=== PATIENT | female | born 2005 | race Caucasian/White ===

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

== ENCOUNTER 2023-07-31 16:55 | Inpatient (IN) | payer OTHER, SELFPAY ==
[2023-07-31] VITALS (45 sets, daily range): BP systolic 90–155; BP diastolic 60–107; PULSE 69–150; RESP 15–17; TEMP 36.6–36.9; O2SAT 97–100; BMI 23.4; BMI 24.5
--- NOTE | ~2023-07-31 | US_ITS ---
EXAMINATION: US OB limited DATE: 07/31/2023 18:46 INDICATION: hx ,vag bleeding, DAVID and Placenta check . TECHNIQUE: Real-time ultrasound of the pelvis was performed. COMPARISON: None. FINDINGS: There is a single living fetus in vertex presentation, longitudinal lie. The placenta is posterior a nd fundal, well clear of the cervix. heart rate is 129 bpm. The amniotic fluid index is 13.4 cm , which is normal (5th to 95th percentile is 8.3 to 24.5 cm). IMPRESSION: Single living fetus in vertex presentation. Posterior and fundal placenta. Normal DAVID. Reviewed, dictated and finalized at location K.
--- NOTE | 2023-07-31 16:55 | LDADM ---
This patient, Tomas Mccormick, was admitted to Labor/Delivery/Recovery 105 on 07/31/23 at 16:55. Plans for labor, pain management and were discussed with patient. Patient/family oriented to hospital policies and general routines including ID bracelet, bed and alarms, visiting hours, pain management, procedures, bathroom and other care routines, personal items, smoking policy, room service/diet and guest tray routines, infant security routines, and visiting hours. Patient/Family are encouraged to report perceived risks to care and to ask questions if they do not understand what they are told or what they should do. See OBIX for further documentation.
--- NOTE | 2023-07-31 17:08 | OBADM ---
This patient, Tomas Mccormick, admitted to the OB room OB Post 117 for observation. Patient/family oriented to hospital policies and general routines including ID bracelet, bed and alarms, visiting hours, pain management, procedures, bathroom and other care routines, personal items, smoking policy, room service/diet, and visiting hours. Patient/Family are encouraged to report perceived risks to care and to ask questions if they do not understand what they are told or what they should do.
--- NOTE | 2023-07-31 17:55 | PC.NURSE ---
Called for farm equipment technician to come in.
[2023-07-31] MEDS: AMPICILLIN 2 GM/NS 100 ML 2 GM/100 ML BAG IVPB (18:42)
[2023-07-31] MEDS: LACTATED RINGERS 1,000 ML 75 ML IV CONT (18:42)
[2023-07-31] MEDS: MAGNESIUM SULF 4 GM/WATER100ML 4 GM/100 ML BAG IVPB (18:47)
[2023-07-31] MEDS: BETAMETHASONE SOD PHOS/ACETATE 30 MG/5 ML VIAL 12 MG IM (18:47)
[2023-07-31 18:58] LABS: Appearance Urine Clear (Clear); Bacteria Urine 1+ /hpf; Bilirubin Urine Negative (Negative); Color Urine Dark Yellow (Yellow); Glucose Urine UA Negative (Negative); Ketones Urine Negative (Negative); Leukocyte Esterase Ur 2+ LEU/UL (NEGATIVE); Nitrate Urine Negative (Negative); Protein Urine Negative (Negative); RBC Urine 0-2 /hpf (0-2); Specific Grav Ur 1.033 (1.001-1.035); Squamous Epithelial Cell Urine Few /hpf (Few); WBC Urine 21-50 /hpf (0-3)
[2023-07-31 19:01] LABS: Add Urine Microscopic? YES
[2023-07-31] MEDS: MAGNESIUM SULF 20GM/WATER500ML 500 ML 50 MG IV CONT (19:17)
--- NOTE | 2023-07-31 19:21 | PM.IMHP ---
H&P: HPI History of Present Illness Date/Time: 07/31/23 19:21 Chief Complaint: Spotting and cramping Narrative: 18 y/0 at 33 weeks by stated edc of 09/18/23. She presented as a walk in to L and D with complaints of reddish spotting which started this morning at about 6am. She stated two days ago after intercourse she had vaginal bleeding, she describes as a lot, which did stop. She has had some cramping this evening. She receives care at [facility]. PNC significant for prior stat c/s at 24 weeks for labor and distress. The baby did not survive. She was planning on trial of labor. Denies any complications during this . On L and D she had ctx q 8-10 mild. Cervix dilated to 6cm/70/-2, posterior. ROM plus neg. Bedside ultrasound on L and D showed vertex presentation, normal amniotic fluid. OB labs/abruption labs drawn. No fevers or urinary symptoms. Review of Systems Review of Systems: All systems reviewed & are unremarkable except as noted in HPI and below Constitutional: Constitutional: Reports no additional constitutional complaints and Denies headache(s) Eyes: Eyes: Denies spots in vision ENT: Reports system reviewed and no additional complaints, except as documented and Denies headache(s) Cardiovascular: Cardiovascular: Denies chest pain and Denies dyspnea Respiratory: Respiratory: Denies dyspnea Gastrointestinal: Gastrointestinal: Reports no additional gastrointestinal complaints Genitourinary: Genitourinary: Reports amenorrhea Musculoskeletal: Musculoskeletal: Reports no additional musculoskeletal complaints Integumentary/Breasts: Skin/Breast: Denies breast mass and Denies rash Neurologic: Denies headache(s) Psychiatric: Psychiatric: Reports no additional psychiatric complaints [facility] Social History Social History Smoking status: Never smoker Substance use: never Spiritual care concerns: No Meds Home Medications and Allergies Allergies Allergy/AdvReac Type Severity Reaction Status Date / Time No Known Allergies Allergy Unknown Unverified 08/17/22 14:55 Vital Signs Vital Signs - 24 hr 07/31/23 17:25 07/31/23 18:52 07/31/23 18:57 Pulse Rate 78 86 Blood Pressure 121/73 142/78 H Pulse Oximetry 98 99 07/31/23 19:02 07/31/23 19:07 07/31/23 19:12 Pulse Rate Blood Pressure Pulse Oximetry 100 97 98 07/31/23 19:17 Pulse Rate Blood Pressure Pulse Oximetry 98 Exam Const: General: no acute distress Eyes: General: appearance normal, both eyes and all related structures Resp: Effort & Inspection: normal respiratory effort Cardio: Rate: regular rate GI: Other: Gravid no fundal tenderness no right upper quadrant pain Skin: General skin exam: no rashes or lesions noted Neuro: Cognition (Neuro): normal cognition Extrem: General: normal to inspection Psych: Mental Status: mental status grossly normal H&P: Results Labs Labs: Urine 07/31/23 Range/Units 18:12 Urine Color Dark yellow (Yellow) Urine Appearance Clear (Clear) Urine pH 6.0 (5.0-9.0) Ur Specific [place] 1.033 (1.001-1.035) Urine Protein Negative (Negative) mg/dL Urine Glucose (UA) Negative (Negative) mg/dL Assessment and Plan Assessment and plan (1) labor: Code(s): O60.00 - labor without delivery, unspecified trimester Status: Acute Assessment and Plan: Admit. Steroids. IV Antibiotics. Magnesium tocolysis to allow for steroid benefit and possible transport if she does not continue to dilate after several hours. She was informed of diagnosis of labor and risk of premature infant to include respiratory distress and need for transport of baby to Level 3 nursery facility if she delivers here due to not being stable for transport. She voices understanding. Records not available,will attempt to retrieve records, in t
[2023-07-31 19:27] LABS: Fetal Fibronectin Positive
[2023-07-31 19:35] LABS: Basophils Percent Auto 0.2 % (0.2-1.2); Eosinophils Absolute Auto 0.4 K/mm3 (0-0.3); Eosinophils Percent Auto 3.1 % (0-4.4); Hematocrit 34.5 % (37.0-47.0); Immature Granulocyte Absolute 0.05 K/mm3 (0.00-0.031); Immature Granulocyte Percent A 0.4 % (0-0.5); Lymphocytes Absolute Auto 1.83 K/mm3 (0.9-3.2); Lymphocytes Percent Auto 14.3 % (18.3-44.2); Mean Corpuscular HGB Conc 31.9 g/dl (32-36); Mean Corpuscular Hemoglobin 25.8 pg (26-34); Mean Platelet Volume 11.1 fl (7.4-10.4); Monocytes Absolute Auto 0.8 K/mm3 (0.1-0.6); Monocytes Percent Auto 6.1 % (2.6-8.5); Neutrophils Absolute Auto 9.7 K/mm3 (1.3-6.7); Neutrophils Percent Auto 75.9 % (45.5-73.1); Platelet Count Result 209 k/mm3 (150-375); Red Blood Count 4.26 M/mm3 (4.2-5.4); Red Cell Distribution Width 12.6 % (11.5-14.5); White Blood Count 12.8 K/mm3 (4.5-10.0)
[2023-07-31 19:43] LABS: Prothrombin Time 13.9 Seconds (11.1-14.7)
[2023-07-31 19:44] LABS: Partial Thromboplastin Time 26.7 SECONDS (22.3-36.8)
[2023-07-31 19:45] LABS: Fibrinogen 441 mg/dl (215-510)
[2023-07-31 19:47] LABS: Alanine Aminotransferase 12 U/L (6-35); Albumin Level 3.4 g/dL (3.5-5.1); Alkaline Phosphatase 129 U/L (38-126); Anion Gap 4 mmol/L (8-16); Aspartate Amino Transferase 22 U/L (14-36); Bilirubin,Total 0.5 mg/dL (0.2-1.3); Blood Urea Nitrogen 6 mg/dL (7-17); Calcium 8.4 mg/dL (8.4-10.2); Carbon Dioxide 25 mmol/L (22-30); Chloride 106 mmol/L (98-107); Estimated CRCL calculation 151 ml/min; Estimated Glomerular Filt Rate > 60; Glucose 87 mg/dL (65-110); Potassium 3.6 mmol/L (3.4-5.0); Sodium 135 mmol/L (137-145)
[2023-07-31 20:10] LABS: Amphetamine Screen Urine Negative (Negative); Barbiturate Screen Urine Negative (Negative); Benzodiazepines Screen Urine Negative (Negative); Cannabinoid Screen Urine Negative (Negative); Cocaine Screen Urine Negative (Negative); Methadone Screen Urine Negative (Negative); Opiate Screen Urine Negative (Negative); Phencyclidine Screen Urine Negative (Negative)
[2023-07-31 20:17] LABS: D Dimer 0.63 ug/mL (<0.48)
[2023-07-31 20:29] LABS: HIV 1/2 Ab P24 Ag Result Negative (Negative)
--- NOTE | 2023-07-31 20:32 | PM.OBPNVD ---
OB - PN: Subj Subjective Date/time seen: 07/31/23 20:32 Interval history: fht 135, cat 2, cervix /+1. Discussed with her that she has progressed and not stable for transport. Will deliver shortly. She has been informed of risk of and continues to agree with . Will stop Mg, alert Peds. She is aware baby will usually need to be transferred after delivery to level 3 nursery facility. OB - PN: Obj Data Labs 07/31/23 19:09 07/31/23 19:09 Labs: Laboratory Results - last 24 hr 07/31/23 07/31/23 07/31/23 18:12 18:15 19:09 WBC Cancelled RBC Hgb Hct MCV MCH MCHC RDW Plt Count MPV Immature Gran % (Auto) Neut % (Auto) Lymph % (Auto) [place] % (Auto) Eos % (Auto) Baso % (Auto) Lymph # (Auto) [place] # (Auto) Eos # (Auto) Baso # (Auto) Abs Immat Gran (auto) Absolute Neuts (auto) Absolute Nucleated RBC Nucleated RBC % % Immature Plt Fraction PT INR APTT Fibrinogen D-Dimer Sodium Potassium Chloride Carbon Dioxide Anion Gap BUN Creatinine Estim Creat Clear Calc Estimated GFR Glucose Calcium Total Bilirubin AST ALT Alkaline Phosphatase Total Protein Albumin Urine Color Dark yellow Urine Appearance Clear Urine pH 6.0 Ur Specific [place] 1.033 Urine Protein Negative Urine Glucose (UA) Negative Urine Ketones Negative Ur Blood (Man) Non-hemolyzed trace Urine Nitrate Negative Urine Bilirubin Negative Urine Urobilinogen 2.0 H Ur Leukocyte Esterase 2+ H Urine RBC 0-2 Urine WBC 21-50 Ur Squamous Epith Cells Few Urine Bacteria 1+ H Urine Casts 3-5 Urine Opiates Screen Negative Urine Methadone Screen Negative Ur Barbiturates Screen Negative Ur Phencyclidine Scrn Negative Ur Amphetamine Screen Negative U Benzodiazepines Scrn Negative Urine Cocaine Screen Negative U Cannabinoids Screen Negative HIV 1&2 Ab/P24 Ag 4thGn Fibronectin Positive 07/31/23 07/31/23 07/31/23 19:09 19:09 19:09 WBC 12.8 H RBC Cancelled 4.26 Hgb Cancelled 11.0 L Hct Cancelled MCV MCH MCHC RDW Plt Count MPV Immature Gran % (Auto) Neut % (Auto) Lymph % (Auto) [place] % (Auto) Eos % (Auto) Baso % (Auto) Lymph # (Auto) [place] # (Auto) Eos # (Auto) Baso # (Auto) Abs Immat Gran (auto) Absolute Neuts (auto) Absolute Nucleated RBC Nucleated RBC % % Immature Plt Fraction PT INR APTT Fibrinogen D-Dimer Sodium Potassium Chloride Carbon Dioxide Anion Gap BUN Creatinine Estim Creat Clear Calc Estimated GFR Glucose Calcium Total Bilirubin AST ALT Alkaline Phosphatase Total Protein Albumin Urine Color Urine Appearance Urine pH Ur Specific [place] Urine Protein Urine Glucose (UA) Urine Ketones Ur Blood (Man) Urine Nitrate Urine Bilirubin Urine Urobilinogen Ur Leukocyte Esterase Urine RBC Urine WBC Ur Squamous Epith Cells Urine Bacteria Urine Casts Urine Opiates Screen Urine Methadone Screen Ur Barbiturates Screen Ur Phencyclidine Scrn Ur Amphetamine Screen U Benzodiazepines Scrn Urine Cocaine Screen U Cannabinoids Screen HIV 1&2 Ab/P24 Ag 4thGn Fibronectin 07/31/23 07/31/23 07/31/23 19:09 19:09 19:09 WBC RBC Hgb Hct 34.5 L MCV Cancelled 81.0 MCH Cancelled 25.8 L MCHC Cancelled RDW Plt Count MPV Immature Gran % (Auto) Neut % (Auto) Lymph % (Auto) [place] % (Auto) Eos % (Auto) Baso % (Auto) Lymph # (Auto) [place] # (Auto) Eos # (Auto) Baso # (Auto) Abs Immat Gran (auto) Absolute Neuts (auto) Absolute Nucleated RBC Nucleated RBC % % Immature Plt Frac
[2023-07-31 20:39] LABS: Hepatitis B Surface Antigen Negative (Negative); Rubella IgG Antibody 6.8 IU/ML
[2023-07-31] MEDS: OXYTOCIN 30 UNITS/NS 500 ML 30 UNITS/500 ML BAG 999 UNITS IV CONT (22:30)
--- NOTE | 2023-07-31 22:40 | PM.OBPRVD ---
OB - Delivery Note Procedure Delivery date: 07/31/23 Procedure: spontaneous vaginal delivery Events: Other (pre term labor) Induction method: None Delivery augmentation: Rupture of Membranes Delivery monitor: External FHT Route of delivery: Episiotomy description: None Laceration Description: None Quantitative Blood Loss (ml): 150 Anesthesia type: None Disposition: Floor Complications: None Narrative: She was admitted for labor and antibiotics and steroids initiated. Magnesium was started to try to get effect from steroids. She did dilate to 9 within a 2 hours. Magnesium was discontinued. AROM performed clear fluid noted. She progressed to complete in 2.5 hours and delivered a male over intact perineum. Loose nuchal cord manually reduced at perineum and the rest of infant delivered. was handed to nursery staff in attendence, vigorously crying. Cord blood obtained and cord gases obtained. Placenta delivered spontaneously and intact. No lacerations. Baby Date of : 07/31/23 Time of : 22:30 Weeks of gestation at delivery: 33 Infant gender: Male presentation: vertex position: Left Occiput Anterior Placenta delivery description: Spontaneous Cord Vessel Description: 3 Vessels, Loose, Reduced (manually) and Clamped/Cut score one minute: 8 score five minutes: 9
[2023-07-31] MEDS: ACETAMINOPHEN 325 MG TABLET 650 MG PO (22:45)
[2023-07-31] MEDS: IBUPROFEN 600 MG TABLET PO (22:45)
[2023-07-31] MEDS: OXYTOCIN 30 UNITS/NS 500 ML 30 UNITS/500 ML BAG 125 UNITS IV CONT (23:03)
[2023-08-01] VITALS (8 sets, daily range): BP systolic 113–134; BP diastolic 54–78; PULSE 55–93; RESP 16–18; TEMP 36.5–37.2; O2SAT 98–100
[2023-08-01] MEDS: WITCH HAZEL 40 PADS 1 PAD TOPICAL (00:28)
[2023-08-01] MEDS: BENZOCAINE 20% AER SPR (*SP) 56 GM CAN 1 SPRAY TOPICAL (00:29)
--- NOTE | 2023-08-01 01:00 | OBPPTRN ---
Patient transferred to post room # 281 via ( wheelchair ). Support person present. Oriented to unit, room, information board, rooming in, admission packet and security measures. Patient verbalizes understanding.
[2023-08-01 05:09] LABS: Hematocrit 33.5 % (37.0-47.0); Hemoglobin 10.7 g/dL (12.0-15.0)
[2023-08-01] MEDS: MULTIVIT/MIN/PREN/FOL AC/IRON TABLET 1 TAB PO (08:08)
[2023-08-01] MEDS: DOCUSATE SODIUM 100 MG CAPSULE PO (08:08)
[2023-08-01] MEDS: RHO(D) IMMUNE GLOBULIN 300 MCG/2 ML SYRINGE IM (11:15)
--- NOTE | 2023-08-01 11:25 | PM.OBPNVD ---
OB - PN: Subj Subjective Date/time seen: 08/01/23 11:25 Interval history: fht 135, cat 2, cervix /+1. Discussed with her that she has progressed and not stable for transport. Will deliver shortly. She has been informed of risk of and continues to agree with . Will stop Mg, alert Peds. She is aware baby will usually need to be transferred after delivery to level 3 nursery facility. Patient comments: pain well controlled, tolerating diet and other (Decreasing lochia.) [place] baby status: doing well and nursing well OB - PN: Obj Data Labs 08/01/23 04:17 07/31/23 19:09 Labs: Laboratory Results - last 24 hr 07/31/23 07/31/23 07/31/23 18:12 18:15 19:09 WBC Cancelled RBC Hgb Hct MCV MCH MCHC RDW Plt Count MPV Immature Gran % (Auto) Neut % (Auto) Lymph % (Auto) [place] % (Auto) Eos % (Auto) Baso % (Auto) Lymph # (Auto) [place] # (Auto) Eos # (Auto) Baso # (Auto) Abs Immat Gran (auto) Absolute Neuts (auto) Absolute Nucleated RBC Nucleated RBC % % Immature Plt Fraction PT INR APTT Fibrinogen D-Dimer Sodium Potassium Chloride Carbon Dioxide Anion Gap BUN Creatinine Estim Creat Clear Calc Estimated GFR Glucose Calcium Total Bilirubin AST ALT Alkaline Phosphatase Total Protein Albumin Urine Color Dark yellow Urine Appearance Clear Urine pH 6.0 Ur Specific [place] 1.033 Urine Protein Negative Urine Glucose (UA) Negative Urine Ketones Negative Ur Blood (Man) Non-hemolyzed trace Urine Nitrate Negative Urine Bilirubin Negative Urine Urobilinogen 2.0 H Ur Leukocyte Esterase 2+ H Urine RBC 0-2 Urine WBC 21-50 Ur Squamous Epith Cells Few Urine Bacteria 1+ H Urine Casts 3-5 Urine Opiates Screen Negative Urine Methadone Screen Negative Ur Barbiturates Screen Negative Ur Phencyclidine Scrn Negative Ur Amphetamine Screen Negative U Benzodiazepines Scrn Negative Urine Cocaine Screen Negative U Cannabinoids Screen Negative Hep Bs Antigen HIV 1&2 Ab/P24 Ag 4thGn Rubella IgG Antibody Fibronectin Positive Blood Type Antibody Screen Antibody Identification Antigen Identification RAVI, IgG Interpret RAVI, Poly Interpret RAVI, Complement Interp Screen Baby's Blood Type Baby's RAVI KB Hemoglobin Doses of RhIg Required 0907/31/23 07/31/23 19:09 19:09 19:09 WBC 12.8 H RBC Cancelled 4.26 Hgb Cancelled 11.0 L Hct Cancelled MCV MCH MCHC RDW Plt Count MPV Immature Gran % (Auto) Neut % (Auto) Lymph % (Auto) [place] % (Auto) Eos % (Auto) Baso % (Auto) Lymph # (Auto) [place] # (Auto) Eos # (Auto) Baso # (Auto) Abs Immat Gran (auto) Absolute Neuts (auto) Absolute Nucleated RBC Nucleated RBC % % Immature Plt Fraction PT INR APTT Fibrinogen D-Dimer Sodium Potassium Chloride Carbon Dioxide Anion Gap BUN Creatinine Estim Creat Clear Calc Estimated GFR Glucose Calcium Total Bilirubin AST ALT Alkaline Phosphatase Total Protein Albumin Urine Color Urine Appearance Urine pH Ur Specific [place] Urine Protein Urine Glucose (UA) Urine Ketones Ur Blood (Man) Urine Nitrate Urine Bilirubin Urine Urobilinogen Ur Leukocyte Esterase Urine RBC Urine WBC Ur Squamous Epith Cells Urine Bacteria Urine Casts Urine Opiates Screen Urine Methadone Screen Ur Barbiturates Screen Ur Phencyclidine Scrn Ur Amphetamine Screen U Benzodiazepines Scrn Urine Cocaine Screen U Cannabinoids Screen Hep Bs Antigen HIV 1&2 Ab/P24 Ag 4thGn Rubella IgG Antibody Fibronectin B
[2023-08-02 00:05] VITALS: BP 118/62; PULSE 54; RESP 16; TEMP 36.9
[2023-08-02 07:30] VITALS: BP 112/61; PULSE 52; RESP 16; TEMP 36.9; O2SAT 99
[2023-08-02] MEDS: MULTIVIT/MIN/PREN/FOL AC/IRON TABLET 1 TAB PO (08:03)
--- NOTE | 2023-08-02 10:29 | PCCCNOTE ---
Received referral. Met with pt. She lives with her mother and plans to return home. is being transferred to [facility] due to labor concerns. Pt. being discharged today as well and plans to go to [facility] to be with . Pt. has no other children. She indicates having all needed items to care of once he is discharged home. Her mother is supportive. She indicates no concerns regarding relationship with father of baby. I've provided her with resources including the contact information for [place]. Encouraged she contact any/all of interest and call WIC to schedule appointment. RN indicates no other concerns. Pt. denies any other care coordination needs.
[2023-08-02 13:36] LABS: Rapid Plasma Reagin Non-Reactive (NonReactive)
--- NOTE | 2023-08-30 09:11 | PM.OBDSVD ---
DS: Admitting Diagnosis Discharge Date 08/02/23 Admitting Diagnosis labor DS: Discharge Diagnosis Discharge Diagnosis Plan labor and delivery OB - DS: Summary Hospital Course Hospital Course: She was admitted for labor at 33 weeks. She continued to progress and was unstable for transport. She had a successful . She did well . The baby did get transferred. On day 1 she was ambulating well, tolerating regular diet, no pain, lochia decreasing. On day 2 baby was transferred and she was discharged to home on PPD2. Discharge precautions discussed. OB Procedures : PTL Mgmt OB Procedures Intrapartum: OB Procedures: : None Peripartum Data Episiotomy description: None complications: none Status at Discharge Functional status at discharge: independent ambulation Time Spent with Patient Time attestation: Total time spent providing and/or coordinating discharge services: Exam Const: General: cooperative Orientation/consciousness: oriented to person, oriented to place and oriented to time HENMT: Face/Nose/Sinus: Normal external nose present Eyes: General: appearance normal, both eyes and all related structures Resp: Effort & Inspection: normal respiratory effort GI: Inspection: normal to inspection Skin: General skin exam: normal color Neuro: General: oriented to person, oriented to place and oriented to time Extrem: General: normal to inspection and no calf tenderness Psych: Appearance: grossly normal Mental Status: mental status grossly normal DS: Data Data Completed and Pending Completed studies during hospitalization: Pending at discharge 07/31/23 22:35 Surgical [PTH] Routine Discharge Plan Discharge Attending physician on discharge: Zi Courtney Consulting providers: Del Bhatt Discharging Clinician: Zi Courtney Anticipated Discharge Date/Time: 08/02/23 09:20 Patient Disposition: Home, Self-Care Activity: may shower and pelvic rest Diet: regular Discharge Instructions: Take daily vitamin. Education: Mom and Baby Guide Given to: Mother Follow-Up: Call your delivering provider's office for an appointment to be seen in: Call for appointment Call [phone] if you are unable to keep your appointment time. BREAST CARE: * Wear a snug supportive bra. * For engorgement discomfort: Breast Feeding: * Apply warm moist washcloths * Express milk as needed to relieve engorgement * Wear loose clothing * For sore nipples: * Identify correct latch-on * Apply warm moist washcloths before and after nursing * Air dry nipples after nursing * May apply Lansinoh cream to nipples EPISIOTOMY/PERINEAL CARE: * Until bleeding stops, use your vladimir bottle after urinating * Change your pad frequently throughout the day * No tub baths until seen by your physician - You may shower ACTIVITY: * Rest as much as possible. * Do not exercise or lift anything heavier than your baby (such as laundry or other children.) * Avoid stairs or driving as much as possible. * Do not put anything into the vagina. No douching, tampons, or sexual activity until seen by physician. NOTIFY PHYSICIAN IF YOU HAVE ANY QUESTIONS OR IF ANY OF THE FOLLOWING SYMPTOMS OCCUR: * If your perineum becomes red, swollen, or more painful than what you have experienced in the hospital. * If your vaginal bleeding becomes foul smelling. * If your vaginal bleeding becomes more heavy than a period or if your bleeding changes from pink to bright red. However, you may pass an occasional walnut-sized clot once or twice for the first week . * If you experience a sharp, shooting pain in you calves. * If you discover a hard, reddened area on your breast or if you experience flu-like symptoms. DIET: * Eat regular, well-yordy
== END 2023-08-02 10:30 | disposition home or self-care (01) | DRG 560 ==
LOC: ANHLDR 20:19 → ANHOB2 08-01 01:15
PROVIDERS: Admitting Provider Obstetrics & Gynecology; Visit Provider Obstetrics & Gynecology
DX: O34.219 Maternal care for unspecified type scar from previous cesarean delivery (principal); Z37.0 Single live birth; O60.14X0 Preterm labor third trimester with preterm delivery third trimester, not applicable or unspecified; O99.824 Streptococcus B carrier state complicating childbirth; O69.81X0 Labor and delivery complicated by cord around neck, without compression, not applicable or unspecified; Z3A.33 33 weeks gestation of pregnancy
CPT/HCPCS: 36415; 76815; 80053; 80307; 81001; 82731; 85014; 85018; 85025; 85380; 85384; 85460; 85461; 85610; 85730; 86592; 86703; 86762; 86850; 86880; 86900; 86901; 87086; 87340; 88307; 90384; A9270; G0432; J0290; J0702; J2590; J2790; J3475; J7120